=== PATIENT | female | born 1995 | race Caucasian/White ===

== ENCOUNTER 2019-09-11 11:24 | Emergency (ER) | payer MEDICAID ==
[~2019-09-11] VITALS: Ht 165.1 cm; Wt 63.5 kg
[2019-09-11 12:00] VITALS: BP_SYST 105
[2019-09-11 13:09] LABS: BILIRUBIN,URINE NEGATIVE (NEGATIVE); BLOOD, URINE 1+ (NEGATIVE); COLOR,URINE YELLOW (YELLOW); GLUCOSE,URINE NEGATIVE (NEGATIVE); KETONES,URINE NEGATIVE (NEGATIVE); LEUKOCYTE ESTERASE ,URINE TRACE (NEGATIVE); NITRITE, URINE NEGATIVE (NEGATIVE); PROTEIN URINE NEGATIVE (NEGATIVE); UROBILINOGEN,URINE 0.2 (0.2-1.0)
[2019-09-11 13:10] LABS: CLARITY/URINE SLIGHTLY HAZY (CLEAR)
--- NOTE | 2019-09-11 13:12 | NUR ---
Patient to ER bed 03 to gown for evaluation. Side rails up.
--- NOTE | 2019-09-11 13:13 | NUR ---
Urine specimen collected and dropped off at the lab.
--- NOTE | 2019-09-11 13:14 | NUR ---
Patient arrived in the ED c/o abdominal and flank pain, cloudy urine, urgency, burning and fevers (Tmax 102F). Denied any nausea or vomiting. Denied any shortness of breath. Denied any hematuria. Alert and oriented x4, respirations even and unlabored, ambulating with a steady gait, speaking in full sentences. VS WNL, pain level 7/10. Informed of the wait time. Instructed to notify ED staff if there are any changes in condition or worsening of symptoms. Patient verbalized understanding.
[2019-09-11 13:16] LABS: BACTERIA,URINE MODERATE /HPF (None Seen)
--- NOTE | 2019-09-11 13:16 | NUR ---
[facility] Lemus at bedside examining patient.
--- NOTE | 2019-09-11 13:25 | NUR ---
Administered Rocephin 1gram IM as ordered by Dr. Lemus. Patient tolerated the medications well.
[2019-09-11] MEDS ORDERED: cefTRIAXone 1 GM in LIDOCAINE 1%, 20 ML MDV 2.1 ML IM ONE (13:30)
--- NOTE | 2019-09-11 13:30 | NUR ---
Patient given written and verbal discharge instructions and verbalizes understanding. ER MD discussed with patient the results and treatment provided. Patient in stable condition. ID arm band removed. Rx of given. Patient educated on pain management and to follow up with PMD. Pain Scale 0/10. Opportunity for questions provided and answered. Medication side effect fact sheet provided.
[2019-09-11 13:32] VITALS: BP_SYST 105
== END 2019-09-11 13:30 | disposition home or self-care (01) ==
LOC: SED 11:24
DX: N39.0 Urinary tract infection, site not specified (principal); Z87.448 Personal history of other diseases of urinary system
CPT/HCPCS: 81000; 87086; 87186; 96372; 99283; J0696; J2001

== ENCOUNTER 2019-10-06 10:51 | Emergency (ER) | payer MEDICAID ==
[2019-10-06 11:21] VITALS: BP_SYST 105
--- NOTE | 2019-10-06 11:26 | NUR ---
Patient triaged and placed in waiting room. VSS and patient appears in no acute distress at this time. Accompanied by self, awaiting available bed, and MD notified of need for MSE.
--- NOTE | 2019-10-06 13:21 | NUR ---
Patient to ER bed 07 to gown for evaluation. Side rails up.
--- NOTE | 2019-10-06 13:23 | NUR ---
Patient is awake, alert, and oriented x4. Patient reports fever since last night and left flank pain x1 month. She presents with sharp left flank pain and nausea. Patient states it feels like a kidney infection as she's had it in the past.
--- NOTE | 2019-10-06 13:27 | NUR ---
Pt moved to bed H1
--- NOTE | 2019-10-06 13:30 | NUR ---
[facility] Lemus at bedside examining patient.
[2019-10-06 13:42] LABS: BILIRUBIN,URINE NEGATIVE (NEGATIVE); BLOOD, URINE 3+ (NEGATIVE); CLARITY/URINE CLEAR (CLEAR); COLOR,URINE YELLOW (YELLOW); GLUCOSE,URINE NEGATIVE (NEGATIVE); KETONES,URINE NEGATIVE (NEGATIVE); LEUKOCYTE ESTERASE ,URINE 2+ (NEGATIVE); NITRITE, URINE POSITIVE (NEGATIVE); PROTEIN URINE 1+ (NEGATIVE); UROBILINOGEN,URINE 0.2 (0.2-1.0)
[2019-10-06] MEDS ORDERED: IBUPROFEN 600 MG TABLET PO ONE (13:45)
[2019-10-06 13:52] LABS: BACTERIA,URINE MANY /HPF (None Seen); MUCUS,URINE 1+ /LPF (None Seen); RBC,URINE 20-50 /HPF (0-3); WBC,URINE >100 /HPF (0-3)
[2019-10-06] MEDS ORDERED: cefTRIAXone 1 GM in LIDOCAINE 1%, 20 ML MDV 2.1 ML IM ONE (14:00)
[2019-10-06 14:11] VITALS: BP_SYST 105
--- NOTE | 2019-10-06 14:11 | NUR ---
Patient given written and verbal discharge instructions and verbalizes understanding. ER MD discussed with patient the results and treatment provided. Patient in stable condition. ID arm band removed. Rx of Levaquin, Ibuprofen given. Patient educated on pain management and to follow up with PMD. Pain Scale 2/10 tolerable for patient . Opportunity for questions provided and answered. Medication side effect fact sheet provided.
== END 2019-10-06 14:11 | disposition home or self-care (01) ==
LOC: SED 10:51
DX: N39.0 Urinary tract infection, site not specified (principal)
CPT/HCPCS: 81000; 81025; 86710; 87086; 87186; 96372; 99283; J0696; J2001; 36415

== ENCOUNTER 2019-10-07 10:39 | Emergency (ER) | payer MEDICAID ==
[~2019-10-07] VITALS: Ht 165.1 cm; Wt 59.0 kg
[2019-10-07 10:42] VITALS: BP_SYST 112
--- NOTE | 2019-10-07 10:42 | NUR ---
BROUGHT BACK TO [facility]AY BED AND TRIAGED, REPORT GIVEN TO JUAN
--- NOTE | 2019-10-07 10:45 | NUR ---
Pt brought by partner,A&Ox4, pt presents to ER with bodyaches , fever , N/V, pt seen at ER yesterday and treated for flu, skin pink and warm, cap refill <3, VSS.
--- NOTE | 2019-10-07 11:53 | NUR ---
Dr Yepez at bedside examining patient
[2019-10-07] MEDS ORDERED: ONDANSETRON HCL 4 MG/2 ML VIAL IVP ONE (12:00)
[2019-10-07] MEDS ORDERED: KETOROLAC TROMETHAMINE 30 MG VIAL IVP ONE (12:00)
[2019-10-07] MEDS ORDERED: NACL 0.9% 1,000 ML IV ONE (12:00)
--- NOTE | 2019-10-07 13:25 | NUR ---
Pt resting at this time,afebrile, no N/V noted
[2019-10-07 13:30] LABS: BASOPHILS % (AUTO) 0.2 % (0.0-2.0); EOSINOPHILS % (AUTO) 0.1 % (0.0-4.0); HEMATOCRIT 39.3 % (36-48); HEMOGLOBIN 13.5 g/dL (12.0-16.0); LYMPHOCYTES # (AUTO) 0.6 K/uL (1.0-5.5); MEAN CORPUSCULAR HEMOGLOBIN 29 pg (27-31); MEAN CORPUSCULAR HGB CONC 34 % (32-36); MEAN CORPUSCULAR VOLUME 86 fL (79.0-98.0); MONOCYTES # (AUTO) 0.8 K/uL (0.0-1.0); MONOCYTES % (AUTO) 10.9 % (1.7-9.3); NEUTROPHILS # (AUTO) 5.9 K/uL (1.8-7.7); NEUTROPHILS % (AUTO) 80.8 % (40.0-70.0); PLATELET COUNT (AUTO) 217 K/uL (130-430); RED BLOOD CELL COUNT(AUTO) 4.59 MIL/uL (4.2-6.2); RED CELL DISTRIBUTION WIDTH 13.3 % (9.0-15.0); WHITE BLOOD COUNT (AUTO) 7.3 K/uL (4.8-10.8)
[2019-10-07] MEDS ORDERED: PANTOPRAZOLE SODIUM 40 MG/VIAL (PROTONIX) IVP ONE (13:45)
[2019-10-07 13:48] LABS: CALCIUM 8.8 mg/dL (8.4-11.0); CREATININE 0.81 mg/dL (0.55-1.30); POTASSIUM 3.9 mmol/L (3.5-5.1)
[2019-10-07 13:49] LABS: ALBUMIN 3.5 g/dL (3.4-4.8); TOTAL BILIRUBIN 0.4 mg/dL (0.0-1.0)
[2019-10-07 13:53] LABS: CLARITY/URINE SLIGHTLY CLOUDY (CLEAR); COLOR,URINE YELLOW (YELLOW); PH,URINE 8.5 (5.0-8.0); PROTEIN URINE 1+ (NEGATIVE)
[2019-10-07 13:54] LABS: BILIRUBIN,URINE NEGATIVE (NEGATIVE); BLOOD, URINE 3+ (NEGATIVE); GLUCOSE,URINE NEGATIVE (NEGATIVE); KETONES,URINE 2+ (NEGATIVE); LEUKOCYTE ESTERASE ,URINE NEGATIVE (NEGATIVE); NITRITE, URINE NEGATIVE (NEGATIVE)
[2019-10-07 13:55] LABS: BACTERIA,URINE MODERATE /HPF (None Seen)
[2019-10-07 13:56] LABS: MUCUS,URINE 1+ /LPF (None Seen)
[2019-10-07] MEDS ORDERED: cefTRIAXone 1 GM IVPB PREMIX 50 ML IV ONE (14:15)
[2019-10-07 15:05] VITALS: BP_SYST 93
--- NOTE | 2019-10-07 15:05 | NUR ---
Patient given written and verbal discharge instructions and verbalizes understanding. ER MD discussed with patient the results and treatment provided. Patient in stable condition. ID arm band removed. IV catheter removed intact and dressing applied, no active bleeding. Rx of Protonix & zofran given. Patient educated on pain management and to follow up with PMD. Pain Scale 6/10 tolerable for patient . Opportunity for questions provided and answered. Medication side effect fact sheet provided.
== END 2019-10-07 15:05 | disposition home or self-care (01) ==
LOC: SED 10:39
DX: N39.0 Urinary tract infection, site not specified (principal); R11.10 Vomiting, unspecified
CPT/HCPCS: 36415; 80053; 81000; 81025; 85025; 87040; 96361; 96365; 96375; 99283; C9113; J0696; J1885; J2405